=== PATIENT | female | born 1940 | race Caucasian/White ===

== ENCOUNTER → 2020-03-26 21:51 | Outpatient (CLI) | payer MEDICARE | END | disposition home or self-care (01) | LOC: D.MAMMO 08:30 | PROVIDERS: ATTEND General Practice | DX: N64.4 Mastodynia (principal); K21.9 Gastro-esophageal reflux disease without esophagitis ==

== ENCOUNTER 2020-06-04 10:43 | Inpatient (IN) | payer MEDICARE ==
[~2020-06-04] VITALS: Ht 157.5 cm; Wt 100.8 kg
[2020-06-18] MEDS ORDERED: TENORMIN25 MG PO (11:13)
[2020-06-18] MEDS ORDERED: DONEPEZIL HCL10 MG PO (11:14)
[2020-06-18] MEDS ORDERED: MOBIC7.5 MG PO (11:15)
[2020-06-18] MEDS ORDERED: OMEPRAZOLE20 M1 PO (11:16)
[2020-06-18] MEDS ORDERED: PEPCID AC20 MG PO (11:18)
[2020-06-18] MEDS ORDERED: LIPITOR20 MG PO (11:18)
[2020-06-18] MEDS ORDERED: SYNTHROID25 MCG PO (11:19)
[2020-06-18 12:19] LABS: BASOPHILS 0.5 % (0-2); EOSINOPHILS 0.4 % (0-7); HEMATOCRIT 39.8 % (36.0-48.0); HEMOGLOBIN 12.7 g/dL (12-16); IMMATURE GRANULOCYTES 0.3 % (0-5); LYMPHOCYTES 19.3 % (15-50); MCHC 31.9 g/dL (31.0-37.0); MCV 93.9 fL (80.0-100.0); MEAN PLATELET VOLUME 9.1 fL (7.4-10.4); MONOCYTES 2.1 % (2-11); NEUTROPHILS 77.4 % (40-80); PLATELET COUNT 270 10x3/uL (130-400); RBC 4.24 10x6/uL (4.00-5.40); RDW 15.3 % (11.5-14.5); WBC 11.2 10x3/uL (4.8-10.8)
[2020-06-18 12:22] LABS: BILIRUBIN NEGATIVE (NEGATIVE); GLUCOSE NEGATIVE (NEGATIVE); KETONE NEGATIVE (NEGATIVE); NITRITE NEGATIVE (NEGATIVE); UROBILINOGEN NORMAL (NORMAL)
[2020-06-18 12:24] LABS: BACTERIA FEW /hpf (NEGATIVE); EPITHELIAL CELLS 0-5 /hpf (0-5); RED CELLS - URINE 0-5 /hpf (0-5); WHITE CELLS - URINE RARE /hpf (NEGATIVE)
[2020-06-18 12:32] LABS: ANION GAP 13.8 mmol/L (8-16); CALCIUM 9.2 mg/dL (8.5-10.1); CARBON DIOXIDE 22.2 mmol/L (21.0-32.0); CREATININE - SERUM 0.9 mg/dL (0.6-1.3)
[2020-06-18 12:38] LABS: INR 1.47 (0.85-1.17); PROTIME 17.7 SECONDS (11.6-15.0)
[2020-06-18 12:39] LABS: APTT 86.5 SECONDS (22.8-39.4)
[2020-06-25] VITALS (13 sets, daily range): BP systolic 117–149; BP diastolic 55–79; BMI 36.6; BMI 40.7
--- NOTE | 2020-06-25 08:37 | NUR ---
LEFT LEG CLEANSED WITH ALCOHOL PRIOR TO PREP. NURSE IN [place]ER[place] ATTIRE TO PREP LEFT LEG. CHLORAPREP X 2. DR. SUNSHINE JOINT COCKTAIL ON FIELD
--- NOTE | 2020-06-25 10:39 | NUR ---
LEVY GROVES ADDED TO RLE PER DR SUNSHINE REQUEST
--- NOTE | 2020-06-25 20:00 | NUR ---
ALERT RESTING IN BED, DAUGHTER AT BEDSIDE, CPM IN USE, DENIES PAIN OR NEEDS AT THIS TIME, CALL LIGHT IN REACH
[2020-06-26 05:39] VITALS: BP 115/43
[2020-06-26 07:09] LABS: HEMATOCRIT 30.7 % (36.0-48.0); HEMOGLOBIN 9.9 g/dL (12-16); MCH 29.9 pg (26.0-34.0); MCHC 32.2 g/dL (31.0-37.0); MCV 92.7 fL (80.0-100.0); MEAN PLATELET VOLUME 9.5 fL (7.4-10.4); RBC 3.31 10x6/uL (4.00-5.40); WBC 14.9 10x3/uL (4.8-10.8)
--- NOTE | 2020-06-26 07:30 | NUR ---
AWAKE AND ALERT. ORIENTED X3. FAMILY AT BEDSIDE. DENIES NEEDS.
[2020-06-26 07:58] VITALS: BP 144/68
--- NOTE | 2020-06-26 08:30 | NUR ---
BREAKFAST SERVED IN ROOM. REPOSITIONED IN BED FOR COMFORT. LUNGS ARE CLEAR BILATERALLY, NO COUGH NOTED. REPORTED USED IS INSTRUCTED. SKIN IS INTACT WITHOUT REDNESS EXCEPT INCISION TO LEFT KNEE WHICH HAS A DRY INTACT DRESSING IN PLACE. IV TO LEFT HAND IS PATENT WITHOUT REDNESS AT INSERTION SITE. DENIES NEEDS. CPM REMOVED AT THIS TIME.
--- NOTE | 2020-06-26 09:44 | NUR ---
REQUESTED AND GIVEN ONE HYDROCODONE PO FOR C/O RIGHT KNEE PAIN LEVEL 8. WILL MONITOR. UNABLE TO WORK WITH PT R/T PAIN THIS AM. FAMILY REPORTS THIS IS NOT JUST KNEE PAIN BUT HIP AND SHOULDER ARTHRITIC PAIN THAT IS NOT NEW. WILL MONITOR.
[2020-06-26 10:34] VITALS: Ht 157.5 cm; Wt 100.8 kg
--- NOTE | 2020-06-26 11:00 | NUR ---
UNABLE TO GET UP WITH PT R/T CHRONIC PAIN. WILL TRY AGAIN LATER.
[2020-06-26 12:00] VITALS: BP 122/52
--- NOTE | 2020-06-26 12:30 | NUR ---
LUNCH SERVED IN ROOM. FEEDS SELF WITH SOME SET UP ASSISTANCE. DENIES NEEDS.
--- NOTE | 2020-06-26 13:30 | NUR ---
REQUESTED AND GIVEN ONE HYDROCODONE PO FOR C/O PAIN LEVEL 8. WILL MONITOR.
--- NOTE | 2020-06-26 14:00 | NUR ---
UP TO BR WITH ONE PERSON MOD ASSIST. VOIDED WITHOUT DIFFICULTY. REPOSITIONED IN BED FOR COMFORT.
[2020-06-26 16:40] VITALS: BP 105/51
--- NOTE | 2020-06-26 17:48 | NUR ---
ATE ALL OF SUPPER. FAMILY AT BEDSIDE. DENIES NEEDS. NO CHANGES NOTED.
[2020-06-26 20:00] VITALS: BP 115/55
--- NOTE | 2020-06-26 20:00 | NUR ---
ALERT RESTING IN BED, CPM IN USE REPORTS SOME PAIN TO LEFT KNEE, SPEAKS LITTLE CROATIAN, SON AT BEDSIDE PT DENIES NEEDS AT THSI TIME CALL MARK CASTRO
[2020-06-27 04:00] VITALS: BP 182/53
[2020-06-27 06:42] LABS: HEMOGLOBIN 9.2 g/dL (12-16); MCH 29.9 pg (26.0-34.0); MCHC 31.7 g/dL (31.0-37.0); MCV 94.2 fL (80.0-100.0); MEAN PLATELET VOLUME 9.6 fL (7.4-10.4); RBC 3.08 10x6/uL (4.00-5.40); RDW 15.4 % (11.5-14.5)
[2020-06-27 06:58] LABS: WBC 11.1 10x3/uL (4.8-10.8)
[2020-06-27 07:31] VITALS: BP 159/70
--- NOTE | 2020-06-27 07:40 | NUR ---
AWAKE AND ALERT. ORIENTED X3. NO C/O AT THIS TIME. CPM IN PLACE TO LEFT KNEE
--- NOTE | 2020-06-27 08:30 | NUR ---
ATE MOST OF BREAKFAST. LUNGS ARE CLEAR BILATERALLY, NO COUGH NOTED. REPORTED USED IS INSTRUCTED. SKIN IS INTACT WITHOUT REDNESS EXCEPT INCISION TO LEFT KNEE WHICH HAS A DRY INTACT DRESSING IN PLACE. SL TO LEFT HAND IS PATENT WITHOUT REDNESS AT INSERTION SITE. REQUESTED AND GIVEN ONE HYDROCODONE PO FOR C/O LEFT KNEE PAIN LEVEL 8. WILL MONITOR. DENIES NEEDS.
--- NOTE | 2020-06-27 09:35 | NUR ---
FAMILY AT BEDSIDE NOW.
[2020-06-27 11:41] VITALS: BP 113/63
--- NOTE | 2020-06-27 12:59 | NUR ---
SITTING UP IN [place] AT BEDSIDE. ASSISTED TO BSC WITH ONE PERSON MIN ASSIST. VOIDED WITHOUT DIFFICULTY. REQUESTED AND GIVEN ONE HYDROCODONE PO FOR C/O LEFT KNEE PAIN LEVEL 7. WILL MONITOR. EATING LUNCH PER SELF.
--- NOTE | 2020-06-27 15:15 | NUR ---
ASSISTED UP TO BSC WITH ONE PERSON MIN ASSIST. ABLE TO STAND TALL AND MOVED SLIGHTLY BETTER FOR SAFTY. VOIDED CLEAR YELLOW URINE WITHOUT DIFFICULTY. REPOSITIONED IN BED FOR COMFORT.
--- NOTE | 2020-06-27 16:09 | MORECARE ---
CASE MANAGEMENT DISCHARGE SUMMARY PATIENT: TAMIKA FUCHS UNIT: [id number] ADM DATE: 06/25/20 AGE: 79 : 38 SEX: F ROOM/BED: D.1212 AUTHOR: PRAMOD REDDY PHYSICIAN: REFERRING PHYSICIAN: LORNA SUNSHINE MD DATE OF SERVICE: 06/27/20 Discharge Plan Patient Name: TAMIKA FUCHS Facility: [facility]:[place] : 1940 Planned Disposition: Home with Home Health Anticipated Discharge Date: Discharge Date: Expected LOS: Initial Reviewer: [email or web address] Initial Review Date: 06/25/2020 Generated: 06/27/20 5:09 pm Comments DCP- Discharge Planning Updated by [email or web address]: Angle Brennan on 06/27/20 3:[address] Patient Name: TAMIKA FUCHS Admission Status: Elective Accout number: [id number] Admission Date: 06-25-2020 : 1940 Admission Diagnosis: Attending: YADIRA Current LOS: 2 Anticipated DC Date: Planned Disposition: Home with Home Health Primary Insurance: MEDICARE A & B Discharge Planning Comments: CM met with patient to complete initial dc planning assessment. CM educated patient on the CM role and verbal consent given by patient to complete assessment. Patient lives at home with family. Patient is independent. At discharge patient plans to return home and feels this is a safe discharge. CM discussed availability of home health, rehab services, and medical equipment. Patient will need HH with nursing and PT. HH will be [facility] and [facility] should deliver equipment before patient is discharged. Referral given to [place] with [facility] and they will see patient. Patient will have family to transport home. Patient denied known discharge needs at this time. CM will continue to follow and will assist as needed. Group Leader [employer] Processing: Angle Brennan External Providers External Provider: [facility] [facility] [place] Next Contact Date: Service Request Date: Service Type: Resolution: Reviewer: Comments: Patient Name: TAMIKA FUCHS Page [phone] at 1609 All edits/amendments must be made on the electronic document DICTATION DATE: 06/27/201608 SALVAGE LABORER: HANNAH 06/27/201608 RPT#: [id number] DC DATE: STATUS: ADM IN [facility] [address] [place] [address] END OF REPORT
[2020-06-27 16:38] VITALS: BP 156/53
--- NOTE | 2020-06-27 16:44 | NUR ---
SUPPER TRAY SERVED IN ROOM. PATIENT DOESN'T WANT WHAT WAS SENT. NEW TRAY ORDERED. FAMILY AT BEDSIDE.
--- NOTE | 2020-06-27 17:51 | NUR ---
ATE ALL OF SUPPER TRAY. CPM PLACED AT THIS TIME. DENIES NEEDS. NO CHANGES NOTED.
--- NOTE | 2020-06-27 18:09 | MORECARE ---
CASE MANAGEMENT DISCHARGE SUMMARY PATIENT: TAMIKA FUCHS UNIT: [id number] ADM DATE: 06/25/20 AGE: 79 : 38 SEX: F ROOM/BED: D.1212 AUTHOR: PRAMOD REDDY PHYSICIAN: REFERRING PHYSICIAN: LORNA SUNSHINE MD DATE OF SERVICE: 06/27/20 Discharge Plan Patient Name: TAMIKA FUCHS Facility: [facility]:[place] : 1940 Planned Disposition: Home with Home Health Anticipated Discharge Date: Discharge Date: Expected LOS: Initial Reviewer: [email or web address] Initial Review Date: 06/25/2020 Generated: 06/27/20 7:08 pm Comments DCP- Discharge Planning Updated by [email or web address]: Angle Brennan on 06/27/20 3:[address] Patient Name: TAMIKA FUCHS Admission Status: Elective Accout number: [id number] Admission Date: 06-25-2020 : 1940 Admission Diagnosis: Attending: YADIRA Current LOS: 2 Anticipated DC Date: Planned Disposition: Home with Home Health Primary Insurance: MEDICARE A & B Discharge Planning Comments: CM met with patient to complete initial dc planning assessment. CM educated patient on the CM role and verbal consent given by patient to complete assessment. Patient lives at home with family. Patient is independent. At discharge patient plans to return home and feels this is a safe discharge. CM discussed availability of home health, rehab services, and medical equipment. Patient will need HH with nursing and PT. HH will be [facility] and [facility] should deliver equipment before patient is discharged. Referral given to [place] with [facility] and they will see patient. Patient will have family to transport home. Patient denied known discharge needs at this time. CM will continue to follow and will assist as needed. Burglar Alarm Mechanic: Angle Brennan External Providers External Provider: [facility] [facility] Next Contact Date: Service Request Date: Service Type: Resolution: Reviewer: Comments: Saleem DP export: 06/27/20 3:09 p Patient Name: TAMIKA FUCHS Page [id number] at 1809 All edits/amendments must be made on the electronic document DICTATION DATE: 06/27/201807 TIE IN MACHINE OPERATOR: HANNAH 06/27/201807 RPT#: [id number] DC DATE: STATUS: ADM IN [facility] [address] [place] [address] END OF REPORT
[2020-06-27 19:50] VITALS: BP 162/60
--- NOTE | 2020-06-27 20:00 | NUR ---
ASSESSED AT THE BEGINNING OF THE SHIFT. SHE IS ALERT AND ORIENTED, ABLE TO VERBALIZE HER NEEDS. BAHAMIAN IS HER LANGUAGE AND SHE IS A LITTLE HARD OF HEARING BUT DOES UNDERSTAND US IF WE TAKE OUR TIME. THE CPM MACHINE IS ON AND SHE IS DOING FWELL WITH NO DISTRESS NOTED. FAMILY ARE AT THE BEDSIDE.
--- NOTE | 2020-06-27 21:14 | NUR ---
CPM MACHINE REMOVED AND PT ASSISTED UP TO THE BSC. SHE WAS ABLE TO HAVE A BM WHICH SHE WAS NEEDING. SHE ALSO TOOK HER HS MEDS WITH A [facility] TO HELP WITH HER BOWELS.
[2020-06-28] VITALS: BP 164/59
--- NOTE | 2020-06-28 03:21 | NUR ---
AFTER FAMILY LEFT AT BEDTIME PT HAS APPEARED TO BE ASLEEP MOST OF THE TIME. WHEN SHE NEEDS TO GO TO THE BATHROOM SHE CALLS AND IS DOING WELL WITH THE BSC. SHE HAS NOT REQUESTED ANY MORE PAIN MEDS.
[2020-06-28 04:00] VITALS: BP 186/74
--- NOTE | 2020-06-28 05:55 | NUR ---
PT WAS INCONT. OF URINE IN THE BED AND AFTER A CLEAN UP WE PUT NEW LINENS ON THE BED. WE ALSO GOT BACK UP TO BSC AND THEN AT O500 WE PLACED HER ON THE CPM MACHINE. SHE SAID SHE SLEPT WELL BUT SEEMED WEAKER WHEN GETTING UP TO BSC.
--- NOTE | 2020-06-28 12:43 | NUR ---
DISCHARGE PAPERWORK SIGNED, ALL QUESTIONS ANSWERED. IV TO LEFT HAND DC'D, TIP INTACT. ESCORTED OUT VIA WHEELCHAIR.
--- NOTE | 2020-07-01 14:19 | OP ---
PATIENT NAME: TAMIKA FUCHS MEDICAL RECORD: [id number] :36 LOCATION:D. D.1212 ADMISSION DATE:06/25/20 SURGEON: LORNA SUNSHINE MD DATE OF OPERATION: 06/25/2020 PREOPERATIVE DIAGNOSIS: Osteoarthritis, left knee. POSTOPERATIVE DIAGNOSIS: Osteoarthritis, left knee. PROCEDURE PERFORMED: Left total knee arthroplasty. INDICATIONS FOR THE PROCEDURE: Ms. Fuchs is an 79-year-old female with history of left knee pain and arthritis. She has had pain in her knee for some time now and has been dealing with this conservatively. Pain is worsening. She is beginning to have more difficulty with ADLs and has elected to proceed with surgery for left total knee arthroplasty. Risks, benefits, and alternatives of surgery were discussed with the patient. Consent was obtained. DESCRIPTION OF PROCEDURE: The patient was met in the holding area where her identity and confirmation of procedure was performed. Left lower extremity was marked. She was taken to the operating room where she was placed supine on the operating table and anesthesia was administered. Tourniquet was applied to the left thigh and left leg was prepped and draped in a sterile fashion. The patient received preoperative antibiotics as well as TXA and a timeout was performed before initiating the case. On initiation of the case, the leg was exsanguinated and the tourniquet was raised. Total tourniquet time was 100 minutes. A medial parapatellar approach was utilized for exposure. The knee was placed into flexion and the incision was made over the anterior knee, dissecting down to the extensor mechanism. The quad tendon was then incised along its medial border curving medially around the patella and down the medial border of the patellar tendon. Knee was then taken into extension. Tissue from the posterior fat pad of the patella and over the anterior distal femur was excised. The flap tissue off the medial tibial plateau was elevated and portion of the meniscus was excised. Patella was then everted, knee was brought into flexion. The cruciate ligaments were excised. Duong's line was marked. There was noted to be significant wear in the lateral compartment with hypoplasia of the lateral femoral condyle. Femoral tunnel was drilled and our femoral guide was inserted. The distal femoral cutting block was then pinned into position. Distal femur cut was completed. Our sizing guide was then placed and the femur was sized to a size 60. The cutting block was placed and secured with pins. Anterior and posterior and chamfer cuts were then completed. Trial for the box cut was then placed in position over the distal femur. This was pinned into position and our box cut was completed using a saw and osteotome. The bony pieces were removed. Osteophytes were removed from around the femur as well. We then turned our attention to the tibia. A PCL retractor was placed. Tibia was brought forward. The extramedullary guide was placed and adjusted for alignment. A 2-mm was taken off the lateral tibial plateau. The cut was then completed, bony pieces removed. The remainder of the medial and lateral meniscus were removed. Tibia was sized to a size [address]. The femoral component was then placed and the tibia was trialed to size 10 poly, felt to have good fit and stability throughout range of motion. We then turned our attention to the patella. The patella was everted and towel clips were placed superior and inferior. Cautery was used around the circumference. Patella was cut for the lateral facet, sized to a size 31 and drilled. Knee was repositioned into flexion and the poly and femoral trials OPERATIVE REPORT [id number] TAMIKA FUCHS were removed. PCL retractor was replaced and the tibia was prepared using a broach and reamer. Tibial trial was removed and the laminar store management trainee was then inserted. Posterior osteophytes were removed, medial and lateral. Knee was then taken into extension, irrigated thoroughly with saline. Joint solution was injected around the capsule of the proximal tibia and the distal femur. It was then repositioned in flexion. The bony ends were dried. Our final components were placed and cemented into position. Excess cement was removed throughout this process. The knee was held in full extension while the cement was allowed to dry. The patella was held with a patellar clamp. Once the cement was dry, it was again taken through range of motion with the trial poly, had some laxity with the size 10. We therefore trialed a size 12, had good fit and stability throughout range of motion. I then elected to place a final size 12 posterior stabilized poly. Again, it was taken through range of motion and had good fit and stability. Wound was irrigated thoroughly with saline. Joint space was injected previously. A drain was placed in the lateral gutter. We then closed the extensor mechanism with #1 Vicryl suture. Subcutaneous tissues were irrigated thoroughly with saline. The remainder of the joint solution was injected. Subcutaneous tissues were closed with 2-0 Vicryl and skin was closed with bisi. An Aquacel dressing was placed over the incision. Sterile dressing was used for a drain sponge to cover the rest of the leg. LEVY hose were then placed. The patient was turned back over to anesthesia where she was awakened, extubated, and taken to recovery room in stable condition. POSTOPERATIVE PLAN: The patient is going to be admitted to the floor for routine postoperative care. She received 24 hours postop antibiotics, be started on DVT prophylaxis tomorrow. Physical therapy will be consulted to assist with mobility, weightbearing as tolerated on the left lower extremity. PLAN: Home with home health. COMPLICATIONS: None. ANESTHESIA: General with peripheral nerve block. ESTIMATED BLOOD LOSS: 100 mL. TRANSINT:[id number] Voice Confirmation ID: [id number] DOCUMENT ID: [id number] LORNA SUNSHINE MD at 1419 CC: LORNA SUNSHINE MD [id number] DICTATION DATE: 06/25/20 1023 MANAGER PRODUCT: 06/25/20 1617 DIS IN 06/28/20 [facility] [address] [place] [address]
== END 2020-06-28 12:44 | disposition home health service (06) | DRG 470 ==
LOC: D.SDCHOLD 06-11 08:45 → D.M3 06-25 05:32 → D.SDCHOLD 06-25 05:32 → D.M3 06-25 10:44
PROVIDERS: ADMIT Orthopaedic Surgery; ATTEND Orthopaedic Surgery
PROC: 0SRD0J9 Replacement of Left Knee Joint with Synthetic Substitute, Cemented, Open Approach (ICD-10-PCS; principal; 2020-06-25 07:30)
DX: M17.12 Unilateral primary osteoarthritis, left knee (principal); G20 Parkinson's disease; M25.562 Pain in left knee

== ENCOUNTER → 2020-08-05 19:16 | Outpatient (CLI) | payer MEDICARE ==
[2020-06-26 10:34] VITALS: BMI 40.6
[~2020-08-05 19:16] MED LIST: DONEPEZIL HCL10 MG PO; LIPITOR20 MG PO; MOBIC7.5 MG PO; OMEPRAZOLE20 M1 PO; PEPCID AC20 MG PO; SYNTHROID25 MCG PO; TENORMIN25 MG PO
[2020-08-05 20:49] LABS: BASOPHILS 0.5 % (0-2); EOSINOPHILS 3.2 % (0-7); HEMATOCRIT 38.8 % (36.0-48.0); HEMOGLOBIN 12.1 g/dL (12-16); IMMATURE GRANULOCYTES 0.2 % (0-5); LYMPHOCYTES 31.4 % (15-50); MCH 29.9 pg (26.0-34.0); MCHC 31.2 g/dL (31.0-37.0); MCV 95.8 fL (80.0-100.0); MEAN PLATELET VOLUME 10.3 fL (7.4-10.4); NEUTROPHILS 56.7 % (40-80); RBC 4.05 10x6/uL (4.00-5.40); RDW 14.9 % (11.5-14.5); WBC 8.5 10x3/uL (4.8-10.8)
[2020-08-05 21:16] LABS: PLATELET COUNT 355 10x3/uL (130-400)
[2020-08-05 22:40] LABS: ERYTHROCYTE SEDIMENTATION RATE 4 mm/hr (0-30)
== END | disposition home or self-care (01) ==
LOC: D.LABREF 19:16
PROVIDERS: ATTEND Orthopaedic Surgery
DX: T84.53XA Infection and inflammatory reaction due to internal right knee prosthesis, initial encounter (principal)

== ENCOUNTER 2021-02-06 16:23 | Emergency (ER) | payer MEDICARE ==
[~2021-02-06] VITALS: Ht 157.5 cm; Wt 90.0 kg
[2021-02-06 16:29] VITALS: Ht 157.5 cm; Wt 90.0 kg
[2021-02-06 16:59] LABS: BASOPHILS 0.2 % (0-2); EOSINOPHILS 2.2 % (0-7); HEMATOCRIT 40.4 % (36.0-48.0); HEMOGLOBIN 13.2 g/dL (12-16); IMMATURE GRANULOCYTES 0.3 % (0-5); LYMPHOCYTE ABS# 3.24 10x3/uL (1.18-3.74); LYMPHOCYTES 25.9 % (15-50); MCH 30.6 pg (26.0-34.0); MCHC 32.7 g/dL (31.0-37.0); MCV 93.5 fL (80.0-100.0); MEAN PLATELET VOLUME 9.1 fL (7.4-10.4); MONOCYTES 7.2 % (2-11); NEUTROPHIL ABS# 8.05 10x3/uL (1.56-6.13); NEUTROPHILS 64.2 % (40-80); RBC 4.32 10x6/uL (4.00-5.40); RDW 14.4 % (11.5-14.5); WBC 12.5 10x3/uL (4.8-10.8)
[2021-02-06 17:00] LABS: PLATELET COUNT 259 10x3/uL (130-400)
[2021-02-06 17:13] LABS: APTT 30.3 SECONDS (22.8-39.4); CALC OSMOLALITY 287 mosm/kg (275-300); CALCIUM 9.4 mg/dL (8.5-10.1); CARBON DIOXIDE 26.5 mmol/L (21.0-32.0); CHLORIDE - SERUM 106 mmol/L (98-107); CREATININE - SERUM 0.7 mg/dL (0.6-1.3); GLUCOSE 107 mg/dL (74-106); INR 1.1 (0.85-1.17); POTASSIUM - SERUM 4.2 mmol/L (3.5-5.1); PROTIME 13.1 SECONDS (11.6-15.0); SODIUM 144 mmol/L (136-145); UREA NITROGEN 15 mg/dL (7-18); eGFR NON AFRICAN AMERICAN 85 mL/min (90-120)
[2021-02-06 17:29] LABS: ALBUMIN 3.9 g/dL (3.4-5.0); ALKALINE PHOSPHATASE 93 U/L (30-120); ALT (SGPT) 18 U/L (10-68); BILIRUBIN - TOTAL 0.37 mg/dL (0.2-1.3); CKMB 1.8 U/L (0.0-3.6); CREATINE KINASE 240 UL (21-215); PROTEIN - SERUM 8.1 g/dL (6.4-8.2)
[2021-02-06 17:30] LABS: TROPONIN-I < 0.017 ng/mL (0.000-0.060)
[2021-02-06 17:48] LABS: BILIRUBIN NEGATIVE (NEGATIVE); KETONE NEGATIVE (NEGATIVE); NITRITE NEGATIVE (NEGATIVE); UROBILINOGEN NORMAL mg/dL (< 2)
[2021-02-06 17:53] LABS: BACTERIA FEW HPF (NONE SEEN); SQUAMOUS EPITHELIAL 0-5 HPF (0-4); WHITE CELLS - URINE 0-5 HPF (0-4)
[2021-02-06 19:04] VITALS: BP 122/65
== END 2021-02-06 19:04 | disposition home or self-care (01) ==
LOC: D.ER 16:23
PROVIDERS: Emergency Medicine
DX: M54.2 Cervicalgia (principal); M79.10 Myalgia, unspecified site; W19.XXXA Unspecified fall, initial encounter; Y93.9 Activity, unspecified; Y92.9 Unspecified place or not applicable; G20 Parkinson's disease; K21.9 Gastro-esophageal reflux disease without esophagitis